=== PATIENT | female | born 1940 | race American Indian/Alaskan Native ===

== ENCOUNTER 2022-02-21 15:05 | Emergency (ER) | payer SELFPAY | END 2022-02-21 17:36 | disposition home or self-care (01) | LOC: ERS 15:05 | DX: R07.89 Other chest pain (principal); I10 Essential (primary) hypertension; E03.9 Hypothyroidism, unspecified; W19.XXXA Unspecified fall, initial encounter | CPT/HCPCS: 70450; 71045; 72125; 93005 ==